=== PATIENT | female | born 1935 | race Caucasian/White ===

== ENCOUNTER 2017-10-30 16:43 | Inpatient (IN) ==
--- NOTE | 2017-10-30 17:50 | Emergency Department Note ---
START Narrative - START START: 82-year-old female who has a history of recurrent diverticulitis who developed increasing lower abdominal pain. Patient's been seen 3 times at an outside facility. On antibiotics is getting worse. Skull examination tenderness across the abdomen diffusely without guarding or rebound.
[2017-10-30 18:35] LABS: Basophils % 0.2 %; Eosinophils % 0.1 %; Hematocrit 39.1 % (35.3-44.9); Immature Granulocytes % 0.5 % (0-4); Lymphocytes # 1.3 K/mcL (0.6-4.6); Lymphocytes % 7.7 %; Mean Corpuscular HGB Conc 33.2 g/dL (31.6-35.5); Mean Corpuscular Hemoglobin 29.1 pg (28.0-33.3); Mean Corpuscular Volume 87.7 fL (83.0-100.0); Mean Platelet Volume 10.7 fL (9.4-12.4); Monocytes # 1.3 K/mcL (0.0-1.3); Monocytes % 7.4 %; Neutrophils # 14.5 K/mcL (1.6-8.9); Platelet Count 263 K/mcL (140-400); Red Blood Count 4.46 M/mcL (3.82-4.97); Segmented Neutrophils % 84.1 %
[2017-10-30 18:59] LABS: Alanine Aminotransferase 21 Units/L (7-52); Albumin 3.7 g/dL (3.5-5.7); Albumin/Globulin Ratio 1.1 (1.1-2.2); Alkaline Phosphatase 76 Units/L (34-104); Amylase 16 Units/L (29-103); Aspartate Amino Transferase 19 Units/L (13-39); BUN/Creatinine Ratio 12 (6-26); Bilirubin,Direct 0.2 mg/dL (0.0-0.2); Bilirubin,Indirect 0.4 mg/dL (0.0-1.2); Bilirubin,Total 0.6 mg/dL (0.3-1.0); Blood Urea Nitrogen 9 mg/dL (8-23); Carbon Dioxide 25 mEq/L (23-29); Chloride 97 mEq/L (98-107); Globulin 3.4 g/dL (2.4-3.5); Glucose 130 mg/dL (70-105); Lipase 9 Units/L (11-82); Osmolality,Calculated 278 (280-300); Potassium 2.9 mEq/L (3.5-5.1); Sodium 134 mEq/L (136-145); Total Protein 7.1 g/dL (6.4-8.9); eGFR For African Americans > 60 (> 60); eGFR For Non-African Americans > 60 (> 60)
[2017-10-30] MEDS ORDERED: 0.9 % Sodium Chloride 1,000 ML IVC ONE ×2 (21:03→21:36)
[2017-10-30] MEDS ORDERED: Ondansetron 4 MG/2 ML VIAL IVP ONE (21:19)
--- NOTE | 2017-10-30 21:25 | Emergency Department Note ---
Disposition Clinical Impression: Colitis Abdominal pain Qualifiers: Abdominal location: left lower quadrant Qualified Code(s): R10.32 - Left lower quadrant pain Disposition: Admitted As Inpatient Condition: Good Referrals: Randy Amor DO [Primary Care Provider] - Forms: ED Satisfaction Letter, Work/School Release Time of Disposition: 22:48 Abdominal Pain HPI - General Chief Complaint: ED Abdominal Pain Stated Complaint: Diverticulitis Time Seen by Provider: 10/30/17 17:48 Source: patient Nursing Notes Reviewed: Yes Vital Signs Reviewed: Yes - History of Present Illness Pt Subjective Complaint: abdominal pain Onset (ago): week(s) Consistency: Worsening Location: LLQ Pain Scale: 8 Quality: cramping, other ("comes and goes") Radiation: LUQ Migration to: no migration Improves with: nothing Worsens with: movement Context: other (diarrhea for "weeks") Associated symptoms: Reports: nausea, diarrhea, fever, syncope, other (weakness) . Denies: vomiting, constipation, dysuria, melena Treatments prior to arrival: other ([facility] ED last week had CT, PCP office yesterday) - Related Data Home Medications Medication Instructions Recorded Confirmed Lisinopril mg PO DAILY 10/30/17 Omeprazole Magnesium [Prilosec Otc] 20 mg PO DAILY 10/30/17 10/30/17 Potassium Chloride [Klor-Con 10] 10 meq PO DAILY 10/30/17 10/30/17 hydroCHLOROthiazide 25 mg PO DAILY 10/30/17 10/30/17 [Hydrochlorothiazide] Allergies Allergy/AdvReac Type Severity Reaction Status Date / Time Procaine [From Novocain] Allergy Palpitation Verified 10/30/17 17:51 s Vsaffip-Fti-Kzm Reductase Allergy See Verified 10/30/17 17:51 Inhibitor Comments [Statins] All systems ED: reviewed and negative except as stated. Review of Systems: As Per HPI Constitutional: Reports: as per HPI Eyes: Denies: eye pain ENT ED: Denies: ear pain Cardiovascular: Denies: chest pain, palpitations, dyspnea on exertion Respiratory: Denies: cough, dyspnea Gastrointestinal: Reports: as per HPI. Denies: hematemesis, melena, hematochezia Genitourinary: Denies: dysuria Musculoskeletal: Denies: back pain Integumentary: Denies: rash Neurological: Denies: headache Psychiatric: Denies: anxiety Endocrine: Denies: fatigue Hematological/Lymphatic: Denies: easy bleeding Allergic/Immunologic: Denies: facial swelling Abdominal Pain PMH - Past Medical History Medical history: Reports: non-contributory Female Surgical History: Reports: cholecystectomy Psychiatric history: Reports: no psych history - Social History Smoking status: Never smoker Alcohol use: Reports: none Drug use: Reports: none Physical Exam - General Limitations: no limitations General appearance: alert, in no apparent distress - Head Head exam: normocephalic - Eye Eye exam: Present: EOMI. Absent: conjunctival injection - ENT ENT exam: normal oropharynx, mucous membranes moist - Neck Neck exam: Present: full ROM - Chest Chest inspection: Present: symmetric chest wall rise - Respiratory Respiratory exam: Present: normal lung sounds bilaterally. Absent: respiratory distress - Cardiovascular Cardiovascular exam: Present: normal rhythm, tachycardia - Abdominal Exam Abdominal exam: Present: soft, tenderness. Absent: distention, guarding, rebound Abdominal tenderness: Present: LLQ - Extremities Exam Extremities exam: Present: normal inspection, full ROM, normal capillary refill - Back Exam Back exam: Present: full ROM. Absent: tenderness, CVA tenderness (R), CVA tenderness (L) - Neurological Exam Neurological exam: Present: alert, oriented X3 - Psychiatric Psychiatric exam: Present: normal affect, normal mood - Skin Skin exam: Present: warm, dry, intact, normal color. Absent: rash, cyanosis, diaphoresis Course Course Narrative: 82-year-old female arrives via private vehicle with complaint of left lower quadrant pain which she describes has been occurring since last week. Pt had CT last week and was told diverticulitis. She is accompanied her brother and grandson She states her pain has been accompanied with diarrhea which has been lasting for weeks. She scratched her abdominal pain is now radiating up to her left upper quadrant, she describes is waxing and waning. Her family mentions that she has also become more weak and fatigued, feverish, and had an episode of syncope or possibly presyncope. (Pt describes she was standing and felt weak falling onto a chair, but denies any prolonged downtime,injury from the fall, or prolong unconsciousness). Patient was seen at [facility] last week and was told that she had diverticulitis, however patient states she was not given any antibiotics. She was seen at her primary care provider's office yesterday as well. She mentions they took stool samples or cultures. Patient states that she is nauseous and makes it difficult for her to eat, but has been trying to take in more fluids. She denies chest pain, hematemesis, melena, bloody stools, urinary symptoms, and contusion. Patient was triaged, and while patient was waiting for a room in this department , initial orders were written after triage by Dr. Jordan. Please see his documentation for further details. Pt now in fast track area. Pt seen and examined. well-developed elderly female in no acute distress. She is alert and oriented. There is no cyanosis or diaphoresis. Lungs clear to ascultation bilaterally. Patient tachycardic but regular rhythm. Abdomen soft , tender left lower quadrant. No gross focal neurological deficits. CT read by radiologist, concerning for colitis more so than diverticulitis. Laboratory shows elevated white count, and patient is tachycardic. We will order EKG, CXR, fluids, blood cultures and lactic, Abx. Pt will need likely admission. - Reevaluation(s) Reevaluation #1: Pt discussed with Dr. Roman who had face time with patient and agreed for admission. Pt receiving fluids/abx. One dose of potassium and zofran. Pt resting comfortably in exam room. Has declined pain meds. plan will be for admission to hospitalists. Time: 22:48 Reevaluation #2: Pt discussed with and accepted by Dr. Lozano who also advised IV flagyl and potassium rider. Time: 23:51 Vital Signs Temperature 99.5 F 10/30/17 17:44 Pulse Rate 129 10/30/17 17:44 Respiratory Rate 16 10/30/17 17:44 Blood Pressure 157/70 10/30/17 17:44 O2 Sat by Pulse Oximetry 96 10/30/17 17:44 Temperature 99.5 F 10/30/17 17:44 Pulse Rate 129 10/30/17 17:44 Respiratory Rate 16 10/30/17 17:44 Blood Pressure 157/70 10/30/17 17:44 O2 Sat by Pulse Oximetry 96 10/30/17 17:44 Oxygen Delivery Oxygen Delivery Room Air Abdominal Pain - Lab Data Lab results reviewed: Yes I reviewed the patient's lab results. Result diagrams: 10/30/17 18:12 10/30/17 18:12 Lab Results 10/30/17 10/30/17 10/30/17 Range/Units 18:12 18:12 21:22 WBC 17.3 H (4.3-11.1) K/mcL RBC 4.46 (3.82-4.97) M/mcL Hgb 13.0 (11.5-15.4) g/dL Hct 39.1 (35.3-44.9) % MCV 87.7 (83.0-100.0) fL MCH 29.1 (28.0-33.3) pg MCHC 33.2 (31.6-35.5) g/dL RDW 13.0 (11.5-14.5) % Plt Count 263 (140-400) K/mcL MPV 10.7 (9.4-12.4) fL Immature Gran % 0.5 (0-4) % Seg Neutrophils % 84.1 % Lymphocytes % 7.7 % Monocytes % 7.4 % Eosinophils % 0.1 % Basophils % 0.2 % Neutrophils # 14.5 H (1.6-8.9) K/mcL Lymphocytes # 1.3 (0.6-4.6) K/mcL Monocytes # 1.3 (0.0-1.3) K/mcL Eosinophils # 0.0 (0.0-0.6) K/mcL Basophils # 0.0 (0.0-0.2) K/mcL Immature Plt Fraction 4.0 (1.1-6.1) % Sodium 134 L (136-145) mEq/L Potassium 2.9 L (3.5-5.1) mEq/L Chloride 97 L (98-107) mEq/L Carbon Dioxide 25 (23-29) mEq/L BUN 9 (8-23) mg/dL Creatinine 0.75 (0.60-1.20) mg/dL Est GFR ( Amer) > 60 (> 60) Est GFR (Non-Af Amer) > 60 (> 60) BUN/Creatinine Ratio 12 (6-26) Glucose 130 H (70-105) mg/dL Calculated Osmolality 278 L (280-300) Lactic Acid 0.8 (0.5-2.2) mmol/L Calcium 9.0 (8.6-10.3) mg/dL Total Bilirubin 0.6 (0.3-1.0) mg/dL Direct Bilirubin 0.2 (0.0-0.2) mg/dL Indirect Bilirubin 0.4 (0.0-1.2) mg/dL AST 19 (13-39) Units/L ALT 21 (7-52) Units/L Alkaline Phosphatase 76 (34-104) Units/L Serum Total Protein 7.1 (6.4-8.9) g/dL Albumin 3.7 (3.5-5.7) g/dL Globulin 3.4 (2.4-3.5) g/dL Albumin/Globulin Ratio 1.1 (1.1-2.2) Amylase 16 L (29-103) Units/L Lipase 9 L (11-82) Units/L Urine Color (Yellow) Urine Clarity (Clear) Urine pH (5.0-8.0) pH Units Ur Specific [place] (1.010-1.025) Urine Protein (Neg-Trace) mg/dL Urine Glucose (UA) (Normal) mg/dL Urine Ketones (Negative) mg/dL Urine Blood (Negative) Urine Nitrite (Negative) Urine Bilirubin (Negative) Urine Urobilinogen (Normal) mg/dL Ur Leukocyte Esterase (Negative) Urine Microscopic RBC (0-3) per hpf Urine Microscopic WBC (0-3) per hpf Ur Squamous Epith Cells (None-Few) per lpf Urine Bacteria (None-Few) per hpf Hyaline Casts (None-Few) per lpf Urine Mucus (Few) Ur Culture Indicated? (NO) 10/30/17 Range/Units 22:30 WBC (4.3-11.1) K/mcL RBC (3.82-4.97) M/mcL Hgb (11.5-15.4) g/dL Hct (35.3-44.9) % MCV (83.0-100.0) fL MCH (28.0-33.3) pg MCHC (31.6-35.5) g/dL RDW (11.5-14.5) % Plt Count (140-400) K/mcL MPV (9.4-12.4) fL Immature Gran % (0-4) % Seg Neutrophils % % Lymphocytes % % Monocytes % % Eosinophils % % Basophils % % Neutrophils # (1.6-8.9) K/mcL Lymphocytes # (0.6-4.6) K/mcL Monocytes # (0.0-1.3) K/mcL Eosinophils # (0.0-0.6) K/mcL Basophils # (0.0-0.2) K/mcL Immature Plt Fraction (1.1-6.1) % Sodium (136-145) mEq/L Potassium (3.5-5.1) mEq/L Chloride (98-107) mEq/L Carbon Dioxide (23-29) mEq/L BUN (8-23) mg/dL Creatinine (0.60-1.20) mg/dL Est GFR ( Amer) (> 60) Est GFR (Non-Af Amer) (> 60) BUN/Creatinine Ratio (6-26) Glucose (70-105) mg/dL Calculated Osmolality (280-300) Lactic Acid (0.5-2.2) mmol/L Calcium (8.6-10.3) mg/dL Total Bilirubin (0.3-1.0) mg/dL Direct Bilirubin (0.0-0.2) mg/dL Indirect Bilirubin (0.0-1.2) mg/dL AST (13-39) Units/L ALT (7-52) Units/L Alkaline Phosphatase (34-104) Units/L Serum Total Protein (6.4-8.9) g/dL Albumin (3.5-5.7) g/dL Globulin (2.4-3.5) g/dL Albumin/Globulin Ratio (1.1-2.2) Amylase (29-103) Units/L Lipase (11-82) Units/L Urine Color Dark Yellow (Yellow) Urine Clarity Cloudy A (Clear) Urine pH 6.5 (5.0-8.0) pH Units Ur Specific [place] 1.011 (1.010-1.025) Urine Protein 100 H (Neg-Trace) mg/dL Urine Glucose (UA) Normal (Normal) mg/dL Urine Ketones 15 H (Negative) mg/dL Urine Blood Negative (Negative) Urine Nitrite Negative (Negative) Urine Bilirubin Small H (Negative) Urine Urobilinogen Normal (Normal) mg/dL Ur Leukocyte Esterase Negative (Negative) Urine Microscopic RBC 3-5 H (0-3) per hpf Urine Microscopic WBC 3-5 H (0-3) per hpf Ur Squamous Epith Cells Many H (None-Few) per lpf Urine Bacteria Moderate H (None-Few) per hpf Hyaline Casts Moderate H (None-Few) per lpf Urine Mucus Many H (Few) Ur Culture Indicated? NO (NO) - Radiology Data Radiology results reviewed: Yes I reviewed the patient's radiology results. - EKG Data EKG attestation: Yes I reviewed and interpreted this EKG. EKG results narrative: minimal ST depression EKG shows normal: sinus rhythm Rate: tachycardia [place]/QRS: normal Interpretation: no acute changes Attestation Statement - Attestation Attestation: Dr Roman note: Pt seen in conjunction w/ PA Ronald De Jesus; Please see his charting for complete documentation; I spent face to face time w/ pt and agree w/ pts treament and disposition and spent face to face time w/ pt; ct ray results reviewed; will require admission due to her dehydration and heart rate; non toxic at this time w/ minimal pain
[2017-10-30] MEDS ORDERED: Piperacillin/Tazobactam 3.375 GM in Water for inj. (sterile) 20 ML IVP ONE (21:36)
[2017-10-30 22:57] LABS: Bilirubin,Urine Small (Negative); Blood,Urine Negative (Negative); Clarity,Urine Cloudy (Clear); Color,Urine Dark Yellow (Yellow); Glucose,Urine (UA) Normal (Normal); Ketones,Urine 15 mg/dL (Negative); Leukocyte Esterase,Urine Negative (Negative); Nitrite,Urine Negative (Negative); PH,Urine 6.5 pH Units (5.0-8.0); Protein,Urine 100 mg/dL (Neg-Trace); Specific Gravity,Urine 1.011 (1.010-1.025); Urobilinogen,Urine Normal (Normal)
[2017-10-30 23:00] LABS: Hyaline Casts,Urine Moderate per lpf (None-Few); Squamous Epithelial Cell,Urine Many per lpf (None-Few)
[2017-10-30 23:16] LABS: Bacteria,Urine Moderate per hpf (None-Few); Mucus,Urine Many (Few)
[2017-10-30] MEDS ORDERED: MetroNIDAZOLE 500 MG/100 ML 500 MG/100 ML BAG IVPB ONE (23:48)
--- NOTE | 2017-10-31 01:09 | Internal Med History&Physical ---
<Ismael Posada - Last Filed: 10/31/17 01:50> Date of Encounter: 10/31/17 Time of Encounter: 01:03 Assessment and Plan (1) Colitis Current visit: Yes Status: Acute Patient appears comfortable and in no acute distress. Patient is afebrile. EKG shows sinus rhythm with no acute ischemic changes. UA is negative for infection. Per radiology report, CT of abdomen and pelvis shows findings more suggestive of infectious colitis than diverticulitis in the ascending colon and sigmoid colon. Chest x-ray showed no acute cardiopulmonary processes. Lactic acid is 0.8. Labs showed elevated white blood count at 17.3. 1. Will give patient IV antibitoics including Flagyl and Cipro. 2. Continue to monitor the patient closely. (2) Hypokalemia Current visit: Yes Status: Acute Patient is comfortable and appears in no acute distress. Patients afebrile. EKG shows sinus rhythm with no acute ischemic changes. Labs show potassium at 2.9 and white blood count at 17.3. Chest x-ray showed no acute cardiopulmonary processes. Will administer potassium to patient and continue to replete as needed. (3) Hypertension Current visit: Yes Status: Acute Will continue home medications. Continue to monitor the patient closely. Qualifiers: Qualified Code(s): I10 - Essential (primary) hypertension Internal Medicine - H&P: HPI Chief complaint: Abdominal pain Admitted From: Emergency Dept History of present illness: Ms. Johnson is a 82 year old female presents to the ED today complaining of left lower quadrant abdominal pain that has been present for about two weeks and is worsening. The patient states that one week ago she was seen at [facility] ER for diverticulitis, but she was not place on any antibiotics. She states today her LLQ abdominal pain is worse and it feels worse than her previous diverticulitis. She describes the left lower quadrant pain as a constant and sharp pain that radiates to the left upper quadrant. She states that the pain is worse with palpation and movement. She did not notice anything that improves the pain. She admits nausea, loss of appetite, low grade fever, fatigue, weakness, and bloody and mucous diarrhea for the past 4 weeks. She denies any headache, vision changes, chest pain, shortness of breath, difficulty breathing, constipation, difficulty urinating, dysuria, vaginal discharge, any blood in her urine, and any numbness or tingling. Past Med Surg Social Fam HX - Past Medical History Medical history: non-contributory Psychiatric history: no psych history - Social History Smoking Status: Never smoker Smokeless Tobacco Status: No Alcohol use: none Drug use: none - Family History Father Hx Family Endocrine Disorder: Yes (DM) Internal Medicine - H&P: Meds Lisinopril mg PO DAILY 10/30/17 [History] Omeprazole Magnesium [Prilosec Otc] 20 mg PO DAILY 10/30/17 [History] Potassium Chloride [Klor-Con 10] 10 meq PO DAILY 10/30/17 [History] hydroCHLOROthiazide [Hydrochlorothiazide] 25 mg PO DAILY 10/30/17 [History] 3 Allergy/AdvReac Type Severity Reaction Status Date / Time Procaine [From Novocain] Allergy Palpitation Verified 10/30/17 17:51 s Ybxnqxh-Qcm-Eox Reductase Allergy See Verified 10/30/17 17:51 Inhibitor Comments [Statins] All Systems PM: A 10-system review of systems was performed and is negative for pertinent findings except as documented above in the HPI. - Constitutional Vitals: Temp Pulse Resp BP Pulse Ox 99.5 F 108 16 159/75 97 10/30/17 17:44 10/30/17 23:56 10/30/17 23:56 10/30/17 23:56 10/30/17 23:56 General appearance: Present: A&O X 3, pleasant. Absent: no acute distress - Head Head exam: Present: atraumatic, normocephalic - Eye Eye exam: Present: PERRL, conjuntiva pink, sclera anicteric Pupils: Present: PERRL - Neck Neck exam general surgery: Present: supple, trachea midline. Absent: lymphadenopathy - Respiratory Respiratory exam: Present: CTAB. Absent: accessory muscle use, rales, respiratory distress, rhonchi, wheezes - Cardiovascular Cardiovascular exam: Present: RRR, +S1, +S2. Absent: diastolic murmur, gallop, rubs, systolic murmur - GI/Abdominal GI/Abdominal exam: Present: normal bowel sounds, soft, tenderness (tenderness to palpation in the LLQ and LUQ. ), no peritoneal signs. Absent: distended, mass - Expanded GI/Abdominal Exam GI/Abdominal exam expanded: Absent: ascites, Wang's sign, tenderness at McBurney's Point - Extremities Exam Extremities exam: Present: warm, radial pulses palpable and symmetrical. Absent : calf tenderness, cyanotic, pedal edema - Neurological Exam Neurological exam: Present: alert, CN II-XII intact, oriented X3, no focal deficits, strengths equal and symetr throughout. Absent: motor sensory deficit , pronater drift, facial droop, speech deficit - Skin Skin exam: Present: dry, intact. Absent: cyanosis, diaphoretic, petechiae, rash Internal Med - H&P Results - Labs CBC & Chem 7: 10/30/17 18:12 10/30/17 18:12 <Leydi Lozano - Last Filed: 10/31/17 04:44> Date of Encounter: 10/31/17 Time of Encounter: 02:35 Internal Medicine - H&P: HPI History of present illness: Ms. Johnson is a 82 year old female All Systems PM: A 10-system review of systems was performed and is negative for pertinent findings except as documented above in the HPI. - Constitutional Vitals: Temp Pulse Resp BP Pulse Ox 99.5 F 108 16 159/75 97 10/30/17 17:44 10/30/17 23:56 10/30/17 23:56 10/30/17 23:56 10/30/17 23:56 Internal Med - H&P Results - Labs CBC & Chem 7: 10/31/17 03:48 10/31/17 03:48 Labs: Short CBC 10/31/17 Range/Units 03:48 WBC 12.5 H (4.3-11.1) K/mcL Hgb 11.6 (11.5-15.4) g/dL Hct 35.6 (35.3-44.9) % Plt Count 179 (140-400) K/mcL BMP 10/31/17 03:48 Sodium 139 Potassium 3.1 L Chloride 108 H Carbon Dioxide 23 BUN 8 Creatinine 0.78 Glucose 113 H Calcium 7.9 L - Attending Attestation Patient is an 82y/o female admitted for abd pain secondary to colitis. Noted to be hypokalemic and hypertensive Pt independently seen and examined at bedside Will continue IV abx, NPO at this time, advance diet as clinically improves IV fluids K supplementation Restart home dose of Lisinopril after verification BP control Heparin SQ for DVT ppx Case discussed with resident physician, Dr. Posada, I agree with her documented findings, assessment,and plan except as listed above.
[2017-10-31] MEDS ORDERED: Ondansetron ODT 4 MG TAB.RAPDIS SL PRN (01:24)
[2017-10-31] MEDS ORDERED: Naloxone 0.4 MG/ML INJ IVP PRN (01:24)
[2017-10-31] MEDS ORDERED: Acetaminophen 325 MG TABLET PO PRN (01:24)
[2017-10-31] MEDS ORDERED: *HR* Metoprolol 5 MG/5 ML VIAL IVP PRN (02:41)
[2017-10-31 04:12] LABS: Basophils % 0.3 %; Eosinophils # 0.1 K/mcL (0.0-0.6); Eosinophils % 0.4 %; Hematocrit 35.6 % (35.3-44.9); Hemoglobin 11.6 g/dL (11.5-15.4); Immature Granulocytes % 0.4 % (0-4); Lymphocytes # 0.8 K/mcL (0.6-4.6); Lymphocytes % 6.5 %; Mean Corpuscular HGB Conc 32.6 g/dL (31.6-35.5); Mean Corpuscular Hemoglobin 29.5 pg (28.0-33.3); Mean Corpuscular Volume 90.6 fL (83.0-100.0); Mean Platelet Volume 10.7 fL (9.4-12.4); Monocytes # 0.8 K/mcL (0.0-1.3); Monocytes % 6.6 %; Neutrophils # 10.7 K/mcL (1.6-8.9); Platelet Count 179 K/mcL (140-400); Red Blood Count 3.93 M/mcL (3.82-4.97); Red Cell Distribution Width 13.2 % (11.5-14.5); Segmented Neutrophils % 85.8 %
[2017-10-31 04:27] LABS: BUN/Creatinine Ratio 10 (6-26); Blood Urea Nitrogen 8 mg/dL (8-23); Calcium 7.9 mg/dL (8.6-10.3); Carbon Dioxide 23 mEq/L (23-29); Chloride 108 mEq/L (98-107); Chol/HDL Ratio 3.2 (0-4.9); Cholesterol 121 mg/dL (< 200); Glucose 113 mg/dL (70-105); HDL Cholesterol 38 mg/dL (40-59); LDL Cholesterol,Calculated 67 mg/dL (0-99); Magnesium 1.8 mg/dL (1.6-2.6); Osmolality,Calculated 287 (280-300); Phosphorous 2.3 mg/dL (2.7-4.5); Potassium 3.1 mEq/L (3.5-5.1); Sodium 139 mEq/L (136-145); Triglycerides 78 mg/dL (< 150); eGFR For African Americans > 60 (> 60); eGFR For Non-African Americans > 60 (> 60)
[2017-10-31] MEDS: *HR* Heparin 5,000 UNIT/ML VIAL SQ SCH ×2 (05:18→17:50)
[2017-10-31] MEDS: 0.9 % Sodium Chloride 1,000 ML IVC SCH ×2 (05:21→19:38)
[2017-10-31 05:22] LABS: Platelet Estimate Normal (Normal)
[2017-10-31] MEDS ORDERED: MetroNIDAZOLE 250 MG/50 ML 250 MG/50 ML BAG IVPB SCH (08:00)
[2017-10-31] MEDS ORDERED: MetroNIDAZOLE 500 MG/100 ML 500 MG/100 ML BAG IVPB SCH (08:00)
[2017-10-31] MEDS: hydroCHLOROthiazide 25 MG TABLET PO SCH (10:25)
[2017-10-31 11:35] LABS: Adenovirus F 40/41 PCR Not detected (Not detect); Astrovirus PCR Not detected (Not detect); C.difficile Toxin A/B by PCR See reflex test (Not detect); Campylobacter by PCR Not detected (Not detect); Cryptosporidium by PCR Not detected (Not detect); Cyclospora cayetanensis PCR Not detected (Not detect); E. coli O157 by PCR Not detected (Not detect); Entamoeba histolytica PCR Not detected (Not detect); Enteroaggregative E.coli(EAEC) Not detected (Not detect); Enteropathogenic E.coli(EPEC) Not detected (Not detect); Enterotoxigenic E.coli (ETEC) Not detected (Not detect); Giardia lamblia PCR Not detected (Not detect); Norovirus GI/GII PCR Not detected (Not detect); Plesiomonas shigelloides PCR Not detected (Not detect); Rotavirus A PCR Not detected (Not detect); Salmonella PCR Not detected (Not detect); Sapovirus PCR Not detected (Not detect); Shig/EnteroinvasiveE coli EIEC Not detected (Not detect); Shigalike tox-prod E coli STEC Not detected (Not detect); Vibrio PCR Not detected (Not detect); Vibrio cholerae PCR Not detected (Not detect); Yersinia enterocolitica PCR Not detected (Not detect)
--- NOTE | 2017-10-31 12:16 | Electrocardiograph Report ---
[place] [id number] Test Date: 2017-10-30 Pat Name: Jessi Johnson Department: 104 Room: 3A Gender: F Supervisor Publications: HUMPHREY : 1935 Requested By: Paco Wade Order Number: [id number] Reading MD: Warren Tolliver DO Measurements Intervals [place] Rate: 100 P: 45 AL: 168 QRS: 9 QRSD: 70 T: 34 QT: 327 QTc: 384 Interpretive Statements SINUS TACHYCARDIA Electronically Signed On 10-31-2017 12:15:18 EST by Warren Tolliver DO
--- NOTE | 2017-10-31 15:33 | Event Note ---
Date of Encounter: 10/31/17 Time of Encounter: 13:00 Patient seen in ER. Currently not having any new episodes of nausea or vomiting. Does continue to have diarrhea. Stool for C. difficile was positive. Will place patient on oral vancomycin. Stop ciprofloxacin.
[2017-10-31] MEDS: 0.9 % Sodium Chloride w KCl 20 MEQ/1,000 ML MLS IVC SCH (17:50)
[2017-10-31] MEDS: Vancomycin Oral Soln 250 MG/5 ML UDC PO SCH ×2 (18:44→22:19)
[2017-11-01] MEDS: *HR* Heparin 5,000 UNIT/ML VIAL SQ SCH ×2 (05:39→19:42)
[2017-11-01] MEDS ORDERED: *HR* Dextrose 50 % in Water (Syg) 50 ML SYRINGE ONE (08:30)
[2017-11-01] MEDS: 0.9 % Sodium Chloride w KCl 20 MEQ/1,000 ML MLS IVC SCH ×2 (08:42→23:00)
[2017-11-01] MEDS: hydroCHLOROthiazide 25 MG TABLET PO SCH (08:44)
[2017-11-01] MEDS: Vancomycin Oral Soln 250 MG/5 ML UDC PO SCH ×4 (08:45→21:51)
--- NOTE | 2017-11-01 15:34 | Internal Med Progress Note ---
Date of Encounter: 11/01/17 Time of Encounter: 08:25 - Assessment and plan (1) Clostridium difficile colitis Current Visit: Yes Status: Acute Assessment and plan: Patient with acute C. difficile colitis. Start on oral vancomycin with improvement in her symptoms. Will continue. Started on diet today. Moderate risk for complications. (2) Hypokalemia Current Visit: Yes Status: Acute Assessment and plan: Repleting intravenously. (3) Hypertension Current Visit: Yes Status: Chronic Assessment and plan: Blood pressure is elevated this morning. Continue Lopressor and hydrochlorothiazide. We will monitor blood pressure and adjust antihypertensive regimen accordingly. Qualifiers: Hypertension type: essential hypertension Qualified Code(s): I10 - Essential (primary) hypertension (4) Hypoglycemia Current Visit: Yes Status: Acute Assessment and plan: Patient had mild hyperglycemia earlier this morning. Likely due to nothing by mouth status. Patient has now been placed on diet and her blood sugars are improved. - Subjective Interval history: Patient is feeling better today. She had 3 episodes of diarrhea overnight. This is much improved than the 10 episodes of diarrhea she was having prior to coming in. She denies any fever or chills. No nausea or vomiting. Had blood sugars were low this morning at 58. She did not receive any insulin products. She denies any diaphoresis or palpitations. - Constitutional Vitals: Temp Pulse Resp BP Pulse Ox 98.6 F 84 15 144/73 97 11/01/17 14:56 11/01/17 14:56 11/01/17 14:56 11/01/17 14:56 11/01/17 14:56 General appearance: Present: cooperative, A&O X 3, pleasant, no acute distress, answers questions appropriately - Respiratory Respiratory exam: Present: CTAB. Absent: accessory muscle use, rales, rhonchi, wheezes - Cardiovascular Cardiovascular exam: Present: RRR, +S1, +S2. Absent: diastolic murmur, gallop, rubs, systolic murmur - GI/Abdominal GI/Abdominal exam: Present: normal bowel sounds, soft, no peritoneal signs. Absent: distended, tenderness - Extremities Exam Extremities exam: Present: warm, radial pulses palpable and symmetrical. Absent : calf tenderness, cyanotic, pedal edema - Neurological Exam Neurological exam: Present: alert, oriented X3, no focal deficits. Absent: facial droop, speech deficit Internal Medicine: Result - Labs CBC & Chem 7: 10/31/17 03:48 10/31/17 03:48 Consult Discharge Plan - Plan Referrals: Randy Amor DO [Primary Care Provider] -
--- NOTE | 2017-11-01 17:55 | Event Note ---
Date of Encounter: 11/01/17 Time of Encounter: 17:54 Patient developed rapid A. fib. Denies prior history but has previously had episodes of palpitations that resolved spontaneously in the past. Was given 5 mg of Lopressor with slight improvement in heart rate. Has now been placed on intravenous Cardizem drip. Monitor with telemetry. Will get 2-D echocardiogram
[2017-11-01 19:06] LABS: Calcium 8.1 mg/dL (8.6-10.3); Carbon Dioxide 26 mEq/L (23-29); Chloride 103 mEq/L (98-107); Magnesium 1.8 mg/dL (1.6-2.6); Potassium 2.9 mEq/L (3.5-5.1); Sodium 136 mEq/L (136-145)
[2017-11-01 19:12] LABS: BUN/Creatinine Ratio 16 (6-26); Blood Urea Nitrogen 11 mg/dL (8-23); Glucose 117 mg/dL (70-105); Osmolality,Calculated 282 (280-300); Phosphorous 1.5 mg/dL (2.7-4.5); eGFR For African Americans > 60 (> 60); eGFR For Non-African Americans > 60 (> 60)
[2017-11-02 05:28] LABS: Basophils # 0.1 K/mcL (0.0-0.2); Basophils % 0.8 %; Eosinophils # 0.7 K/mcL (0.0-0.6); Eosinophils % 8.7 %; Hemoglobin 10.9 g/dL (11.5-15.4); Immature Granulocytes % 1.1 % (0-4); Lymphocytes # 2.2 K/mcL (0.6-4.6); Lymphocytes % 26.1 %; Mean Corpuscular HGB Conc 32.1 g/dL (31.6-35.5); Mean Corpuscular Hemoglobin 28.6 pg (28.0-33.3); Mean Corpuscular Volume 89.2 fL (83.0-100.0); Mean Platelet Volume 10.2 fL (9.4-12.4); Monocytes # 0.7 K/mcL (0.0-1.3); Monocytes % 7.9 %; Neutrophils # 4.7 K/mcL (1.6-8.9); Platelet Count 232 K/mcL (140-400); Red Blood Count 3.81 M/mcL (3.82-4.97); Red Cell Distribution Width 13.2 % (11.5-14.5); Segmented Neutrophils % 55.4 %
[2017-11-02 05:44] LABS: BUN/Creatinine Ratio 14 (6-26); Blood Urea Nitrogen 9 mg/dL (8-23); Carbon Dioxide 27 mEq/L (23-29); Chloride 109 mEq/L (98-107); Glucose 78 mg/dL (70-105); Osmolality,Calculated 290 (280-300); Potassium 2.9 mEq/L (3.5-5.1); Sodium 141 mEq/L (136-145); eGFR For African Americans > 60 (> 60); eGFR For Non-African Americans > 60 (> 60)
[2017-11-02 05:58] LABS: Platelet Estimate Normal (Normal)
[2017-11-02] MEDS: *HR* Heparin 5,000 UNIT/ML VIAL SQ SCH (06:05)
[2017-11-02] MEDS ORDERED: Potassium Chloride 40 MEQ, Lidocaine 1% 2 ML in D5% in Water 500 ML IVPB ONE (08:06)
[2017-11-02] MEDS: hydroCHLOROthiazide 25 MG TABLET PO SCH (09:08)
[2017-11-02] MEDS: Vancomycin Oral Soln 250 MG/5 ML UDC PO SCH ×4 (09:09→20:59)
--- NOTE | 2017-11-02 12:30 | Electrocardiograph Report ---
[place] [id number] Test Date: 2017-11-01 Pat Name: Jessi Johnson Department: 115 Room: 3A47 Gender: F Customer Service Clerk: CONNIE : 1935 Requested By: Santo Lyn Order Number: [id number] Reading MD: Chas Hernandez MD Measurements Intervals [place] Rate: 161 P: [place]: 0 QRS: 5 QRSD: 80 T: 0 QT: 185 QTc: 274 Interpretive Statements ATRIAL FIBRILLATION WITH RAPID VENTRICULAR RESPONSE Electronically Signed On 11-02-2017 12:28:29 EST by Chas Hernandez MD
--- NOTE | 2017-11-02 12:30 | Electrocardiograph Report ---
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
--- NOTE | 2017-11-02 16:26 | Internal Med Progress Note ---
Date of Encounter: 11/02/17 Time of Encounter: 09:50 - Assessment and plan (1) Clostridium difficile colitis Current Visit: Yes Status: Acute Assessment and plan: Continue oral vancomycin. Improving. (2) Hypokalemia Current Visit: Yes Status: Acute Assessment and plan: Improved with repletion (3) Hypertension Current Visit: Yes Status: Chronic Assessment and plan: well-controlled Qualifiers: Hypertension type: essential hypertension Qualified Code(s): I10 - Essential (primary) hypertension (4) Hypoglycemia Current Visit: Yes Status: Resolved Assessment and plan: Now resolved - Subjective Interval history: Patient feels much better today. No palpitations. No chest pain. Tolerating oral diet well. Has not had any new episodes of diarrhea overnight. - Constitutional Vitals: Temp Pulse Resp BP Pulse Ox 98.2 F 75 15 151/66 97 11/02/17 14:42 11/02/17 14:42 11/02/17 14:42 11/02/17 14:42 11/02/17 14:42 General appearance: Present: cooperative, A&O X 3, pleasant, no acute distress, answers questions appropriately - Respiratory Respiratory exam: Present: CTAB. Absent: accessory muscle use, rales, rhonchi, wheezes - Cardiovascular Cardiovascular exam: Present: RRR, +S1, +S2. Absent: diastolic murmur, gallop, rubs, systolic murmur - GI/Abdominal GI/Abdominal exam: Present: normal bowel sounds, soft, no peritoneal signs. Absent: distended, tenderness - Extremities Exam Extremities exam: Present: warm, radial pulses palpable and symmetrical. Absent : calf tenderness, cyanotic, pedal edema - Neurological Exam Neurological exam: Present: alert, oriented X3, no focal deficits. Absent: facial droop, speech deficit Internal Medicine: Result - Labs CBC & Chem 7: 11/03/17 05:56 11/03/17 05:56 Labs: Short CBC 11/02/17 Range/Units 05:08 WBC 8.5 (4.3-11.1) K/mcL Hgb 10.9 L (11.5-15.4) g/dL Hct 34.0 L (35.3-44.9) % Plt Count 232 (140-400) K/mcL Neutrophils # 4.7 (1.6-8.9) K/mcL BMP 11/01/17 11/02/17 17:44 05:08 Sodium 136 141 Potassium 2.9 L 2.9 L Chloride 103 109 H Carbon Dioxide 26 27 BUN 11 9 Creatinine 0.69 0.66 Glucose 117 H 78 Calcium 8.1 L 8.0 L Cardiac Enzymes 11/01/17 Range/Units 17:45 Troponin I < 0.03 (< 0.04) ng/mL - Impressions Impressions Echocardiogram 11/01/17 17:55 Impressions: LVEF 60-65%. Normal LV chamber size, wall thickness and function. Mild left ventricular diastolic dysfunction. Normal right ventricular structure and function. Mild tricuspid regurgitation. No pulmonary hypertension. Left Ventricular Wall Motion: Rest Echo Findings All wall segments showed normal motion. Findings: Study Quality * Technically adequate exam. ECG Findings * Normal sinus rhythm. Left Ventricle * LVEF 60-65%. * Normal LV chamber size, wall thickness and function. * Mild left ventricular diastolic dysfunction. Right Ventricle * Normal right ventricular structure and function. Left Atrium * Mildly dilated left atrium. Right Atrium * Normal right atrial size. Interatrial Septum * Interatrial septum not well evaluated. Aortic Valve * Trileaflet aortic valve. * Mildly sclerotic aortic valve leaflets. * No aortic regurgitation. * No aortic stenosis. Mitral Valve * Normal mitral valve structure and function. * No mitral regurgitation. * No mitral stenosis. Tricuspid Valve * Normal tricuspid valve structure. * Mild tricuspid regurgitation. * No pulmonary hypertension. Pulmonic Valve * Normal pulmonic valve structure and function. * No pulmonic regurgitation. Aorta * Normally sized aortic root. Pericardium * The pericardium appears normal. IVC * Normal IVC dimensions and inspiratory collapse. Pulmonary Artery * Normal visualized portions of the main pulmonary artery. Consult Discharge Plan - Plan Referrals: Randy Amor DO [Primary Care Provider] -
[2017-11-02] MEDS: Apixaban 5 MG TABLET PO SCH (20:57)
[2017-11-02] MEDS: 0.9 % Sodium Chloride w KCl 20 MEQ/1,000 ML MLS IVC SCH (21:03)
[2017-11-03 07:57] LABS: BUN/Creatinine Ratio 13 (6-26); Blood Urea Nitrogen 8 mg/dL (8-23); Calcium 8.4 mg/dL (8.6-10.3); Carbon Dioxide 28 mEq/L (23-29); Chloride 106 mEq/L (98-107); Glucose 77 mg/dL (70-105); Osmolality,Calculated 287 (280-300); Phosphorous 2.5 mg/dL (2.7-4.5); Potassium 3.8 mEq/L (3.5-5.1); Sodium 140 mEq/L (136-145); eGFR For African Americans > 60 (> 60); eGFR For Non-African Americans > 60 (> 60)
[2017-11-03 08:20] LABS: Basophils # 0.1 K/mcL (0.0-0.2); Basophils % 0.7 %; Eosinophils # 0.7 K/mcL (0.0-0.6); Hematocrit 35.1 % (35.3-44.9); Hemoglobin 11.3 g/dL (11.5-15.4); Immature Granulocytes % 2.5 % (0-4); Lymphocytes # 2.8 K/mcL (0.6-4.6); Lymphocytes % 35.3 %; Mean Corpuscular HGB Conc 32.2 g/dL (31.6-35.5); Mean Corpuscular Hemoglobin 28.7 pg (28.0-33.3); Mean Corpuscular Volume 89.1 fL (83.0-100.0); Mean Platelet Volume 10.7 fL (9.4-12.4); Monocytes # 0.6 K/mcL (0.0-1.3); Monocytes % 7.6 %; Neutrophils # 3.6 K/mcL (1.6-8.9); Platelet Count 289 K/mcL (140-400); Red Blood Count 3.94 M/mcL (3.82-4.97); Red Cell Distribution Width 13.2 % (11.5-14.5); Segmented Neutrophils % 44.9 %
[2017-11-03] MEDS: Apixaban 5 MG TABLET PO SCH ×2 (09:45→20:44)
[2017-11-03] MEDS: hydroCHLOROthiazide 25 MG TABLET PO SCH (09:45)
[2017-11-03] MEDS: 0.9 % Sodium Chloride w KCl 20 MEQ/1,000 ML MLS IVC SCH (12:06)
[2017-11-03] MEDS: Vancomycin Oral Soln 250 MG/5 ML UDC PO SCH ×4 (12:07→20:46)
[2017-11-03] MEDS: Lactobacillus 1 EACH CAP.SPRINK PO SCH ×2 (12:07→20:44)
--- NOTE | 2017-11-03 14:32 | Internal Med Progress Note ---
Date of Encounter: 11/03/17 Time of Encounter: 09:40 - Assessment and plan (1) Clostridium difficile colitis Current Visit: Yes Status: Acute Assessment and plan: Continue oral vancomycin. Patient having diarrhea episodes. We will start lactobacillus in addition to vancomycin. Moderate risk for complications. Start Gentle hydration. (2) Hypokalemia Current Visit: Yes Status: Resolved (3) Hypertension Current Visit: Yes Status: Chronic Assessment and plan: Well-controlled Qualifiers: Hypertension type: essential hypertension Qualified Code(s): I10 - Essential (primary) hypertension (4) Hypoglycemia Current Visit: Yes Status: Resolved - Subjective Interval history: Patient complains of new episodes of diarrhea. Began this morning. So far she says she has had 5 episodes. Tolerating oral diet. Feels weak overall. No abdominal pain. - Constitutional Vitals: Temp Pulse Resp BP Pulse Ox 97.9 F 70 16 134/53 96 11/03/17 06:02 11/03/17 06:02 11/03/17 06:02 11/03/17 06:02 11/03/17 06:02 General appearance: Present: cooperative, A&O X 3, pleasant, no acute distress, answers questions appropriately - Respiratory Respiratory exam: Present: CTAB. Absent: accessory muscle use, rales, rhonchi, wheezes - Cardiovascular Cardiovascular exam: Present: RRR, +S1, +S2. Absent: diastolic murmur, gallop, rubs, systolic murmur - GI/Abdominal GI/Abdominal exam: Present: normal bowel sounds, soft, no peritoneal signs. Absent: distended, tenderness - Extremities Exam Extremities exam: Present: warm, radial pulses palpable and symmetrical. Absent : calf tenderness, cyanotic, pedal edema - Neurological Exam Neurological exam: Present: CN II-XII intact, oriented X3, no focal deficits. Absent: facial droop, speech deficit Internal Medicine: Result - Labs CBC & Chem 7: 11/03/17 05:56 11/03/17 05:56 Labs: Short CBC 11/03/17 Range/Units 05:56 WBC 8.0 (4.3-11.1) K/mcL Hgb 11.3 L (11.5-15.4) g/dL Hct 35.1 L (35.3-44.9) % Plt Count 289 (140-400) K/mcL Neutrophils # 3.6 (1.6-8.9) K/mcL BMP 11/03/17 05:56 Sodium 140 Potassium 3.8 Chloride 106 Carbon Dioxide 28 BUN 8 Creatinine 0.64 Glucose 77 Calcium 8.4 L Consult Discharge Plan - Plan Referrals: Randy Amor DO [Primary Care Provider] -
[2017-11-04] MEDS: 0.9 % Sodium Chloride w KCl 20 MEQ/1,000 ML MLS IVC SCH ×2 (06:22→18:05)
[2017-11-04 10:10] LABS: BUN/Creatinine Ratio 12 (6-26); Blood Urea Nitrogen 9 mg/dL (8-23); Calcium 8.7 mg/dL (8.6-10.3); Carbon Dioxide 24 mEq/L (23-29); Chloride 107 mEq/L (98-107); Glucose 137 mg/dL (70-105); Osmolality,Calculated 289 (280-300); Potassium 4.1 mEq/L (3.5-5.1); Sodium 139 mEq/L (136-145); eGFR For African Americans > 60 (> 60); eGFR For Non-African Americans > 60 (> 60)
[2017-11-04] MEDS: hydroCHLOROthiazide 25 MG TABLET PO SCH (10:37)
[2017-11-04] MEDS: Lactobacillus 1 EACH CAP.SPRINK PO SCH ×2 (10:37→21:19)
[2017-11-04] MEDS: Apixaban 5 MG TABLET PO SCH ×2 (10:38→21:19)
[2017-11-04] MEDS: Vancomycin Oral Soln 250 MG/5 ML UDC PO SCH ×4 (10:38→21:21)
--- NOTE | 2017-11-04 15:21 | Internal Med Progress Note ---
Date of Encounter: 11/04/17 Time of Encounter: 09:50 - Assessment and plan (1) Clostridium difficile colitis Current Visit: Yes Status: Acute Assessment and plan: Continue oral vancomycin and lactobacillus. Continue to replenish electrolytes. Continue IV hydration. (2) Hypokalemia Current Visit: Yes Status: Resolved (3) Hypertension Current Visit: Yes Status: Chronic Assessment and plan: Remains elevated. Will start patient on low-dose amlodipine. Qualifiers: Hypertension type: essential hypertension Qualified Code(s): I10 - Essential (primary) hypertension (4) Hypoglycemia Current Visit: Yes Status: Resolved - Subjective Interval history: Patient has continued to have episodes of diarrhea. Also having mild abdominal discomfort in the left lower quadrant. No nausea or vomiting. No hematemesis or melena. No hematochezia. - Constitutional Vitals: Temp Pulse Resp BP Pulse Ox 97.7 F 82 16 145/67 94 11/04/17 07:20 11/04/17 07:20 11/04/17 07:20 11/04/17 07:20 11/04/17 07:20 General appearance: Present: cooperative, A&O X 3, pleasant, no acute distress, answers questions appropriately - Neck Neck exam general surgery: Present: supple, trachea midline. Absent: lymphadenopathy - Respiratory Respiratory exam: Present: CTAB. Absent: accessory muscle use, rales, rhonchi, wheezes - Cardiovascular Cardiovascular exam: Present: RRR, +S1, +S2. Absent: diastolic murmur, gallop, rubs, systolic murmur - GI/Abdominal GI/Abdominal exam: Present: normal bowel sounds, soft, no peritoneal signs. Absent: distended, tenderness - Extremities Exam Extremities exam: Present: warm, radial pulses palpable and symmetrical. Absent : calf tenderness, cyanotic, pedal edema Internal Medicine: Result - Labs CBC & Chem 7: 11/03/17 05:56 11/04/17 09:40 Labs: BMP 11/04/17 09:40 Sodium 139 Potassium 4.1 Chloride 107 Carbon Dioxide 24 BUN 9 Creatinine 0.74 Glucose 137 H Calcium 8.7 Consult Discharge Plan - Plan Referrals: Randy Amor DO [Primary Care Provider] -
[2017-11-04] MEDS: amLODIPine 5 MG TABLET PO SCH (18:06)
[2017-11-05] MEDS: 0.9 % Sodium Chloride w KCl 20 MEQ/1,000 ML MLS IVC SCH (04:20)
[2017-11-05 08:36] LABS: Basophils # 0.1 K/mcL (0.0-0.2); Basophils % 1.3 %; Eosinophils # 0.3 K/mcL (0.0-0.6); Eosinophils % 2.8 %; Hematocrit 40.5 % (35.3-44.9); Immature Granulocytes % 3.8 % (0-4); Lymphocytes # 2.8 K/mcL (0.6-4.6); Lymphocytes % 27.4 %; Mean Corpuscular HGB Conc 32.3 g/dL (31.6-35.5); Mean Corpuscular Volume 89.8 fL (83.0-100.0); Mean Platelet Volume 10.2 fL (9.4-12.4); Monocytes # 0.6 K/mcL (0.0-1.3); Monocytes % 5.5 %; Neutrophils # 6.2 K/mcL (1.6-8.9); Platelet Count 352 K/mcL (140-400); Red Blood Count 4.51 M/mcL (3.82-4.97); Red Cell Distribution Width 13.6 % (11.5-14.5); Segmented Neutrophils % 59.2 %
[2017-11-05 08:37] LABS: Hemoglobin 13.1 g/dL (11.5-15.4)
[2017-11-05 09:13] LABS: BUN/Creatinine Ratio 14 (6-26); Blood Urea Nitrogen 9 mg/dL (8-23); Calcium 8.6 mg/dL (8.6-10.3); Carbon Dioxide 25 mEq/L (23-29); Chloride 107 mEq/L (98-107); Glucose 100 mg/dL (70-105); Osmolality,Calculated 285 (280-300); Potassium 4.3 mEq/L (3.5-5.1); Sodium 138 mEq/L (136-145); eGFR For African Americans > 60 (> 60); eGFR For Non-African Americans > 60 (> 60)
[2017-11-05] MEDS: Apixaban 5 MG TABLET PO SCH ×2 (09:25→20:54)
[2017-11-05] MEDS: Lactobacillus 1 EACH CAP.SPRINK PO SCH ×2 (09:25→20:54)
[2017-11-05] MEDS: hydroCHLOROthiazide 25 MG TABLET PO SCH (09:25)
[2017-11-05] MEDS: amLODIPine 5 MG TABLET PO SCH (09:25)
[2017-11-05] MEDS: Vancomycin Oral Soln 250 MG/5 ML UDC PO SCH ×4 (09:26→20:54)
[2017-11-05] MEDS: Diltiazem CD (24hr) 120 MG CAPSULE PO SCH (09:26)
--- NOTE | 2017-11-05 15:10 | Discharge Summary ---
Date of Encounter: 11/05/17 Time of Encounter: 09:30 - Discharge Diagnosis (1) Clostridium difficile colitis Priority: Primary Status: Acute (2) Hypokalemia Priority: Secondary Status: Resolved (3) Hypertension Priority: Secondary Status: Chronic Qualifiers: Hypertension type: essential hypertension Qualified Code(s): I10 - Essential (primary) hypertension (4) Hypoglycemia Priority: Secondary Status: Resolved (5) Atrial fibrillation Priority: Secondary Status: Acute Qualifiers: Atrial fibrillation type: paroxysmal Qualified Code(s): I48.0 - Paroxysmal atrial fibrillation - Discharge Medications Prescriptions: Diltiazem CD (24hr) [Cardizem CD] 120 mg PO DAILY #30 cap.er.24h Lactobacillus [Culturelle] 1 each PO BID #30 cap.sprink Vancomycin Oral Soln [Vancocin] 125 mg PO QID 8 Days [facility] [place] Home Medications: Lisinopril mg PO DAILY 10/30/17 [History] Omeprazole Magnesium [Prilosec Otc] 20 mg PO DAILY 10/30/17 [History] Potassium Chloride [Klor-Con 10] 10 meq PO DAILY 10/30/17 [History] hydroCHLOROthiazide [Hydrochlorothiazide] 25 mg PO DAILY 10/30/17 [History] Apixaban [Eliquis] 2.5 mg PO BID #60 tablet 11/02/17 [Rx] Diltiazem CD (24hr) [Cardizem CD] 120 mg PO DAILY #30 cap.er.24h 11/05/17 [Rx] Lactobacillus [Culturelle] 1 each PO BID #30 cap.sprink 11/05/17 [Rx] Vancomycin Oral Soln [Vancocin] 125 mg PO QID 8 Days [facility] [place] 11/05/17 [Rx] Allergies/Adverse Reactions: 3 Allergy/AdvReac Type Severity Reaction Status Date / Time Procaine [From Novocain] Allergy Palpitation Verified 10/30/17 17:51 s Iff[place]-Nas-Tnl Reductase Allergy See Verified 10/30/17 17:51 Inhibitor Comments [Statins] Date of admission: 11/02/17 16:58 Primary care physician: Randy Amor Discharging clinician: Santo Lyn Anticipated date of discharge: 11/06/17 - Patient Status Disposition: Home, Self-Care Condition: Good Functional capacity at discharge: independent ambulation Overall status at discharge: patient is progressing back to baseline - Discharge Instructions Instructions: Atrial Fibrillation (DC), Clostridium Difficile Infection (DC), Chronic Hypertension (DC) Follow Up With: Randy Amor DO [Primary Care Provider] - (in 1 -2 weeks) Additional Instructions: FOllow up with Cardiology in 1-2 weeks for Afib management - Diet and Activity Activity: increase activity as tolerated Diet: low fat, low cholesterol, low salt diet Hospital course: Ms. Johnson is a 82 year old female patient who was hospitalized here with acute colitis. Her stool was positive for C. difficile colitis. Patient was placed on oral vancomycin with initial improvement in her symptoms. However her diarrhea has persisted and so she was kept in the hospital on intravenous hydration and replete her electrolytes and fluids. Her symptoms have now started to improve and her diarrhea has become less frequent. She did develop atrial fibrillation during her stay here. She has a [id number] score of 5 and would benefit from anticoagulation. She was placed on Eliquis for anticoagulation. She is tolerating this medication well. At this time, she is stable to be discharged home if her diarrhea continues to improve and become less frequent. She is also on lactobacillus to help with her symptoms. - Time Spent with Patient Total time spent providing and/or coordinating discharge services: Greater than 30 minutes (40 min) - Constitutional Vitals: Temp Pulse Resp BP Pulse Ox 98.4 F 84 16 136/78 96 11/05/17 11:43 11/05/17 11:43 11/05/17 11:43 11/05/17 11:43 11/05/17 11:43 General appearance: Present: cooperative, A&O X 3, pleasant, no acute distress, answers questions appropriately - Respiratory Respiratory exam: Present: CTAB. Absent: accessory muscle use, rales, rhonchi, wheezes - Cardiovascular Cardiovascular exam: Present: RRR, +S1, +S2. Absent: diastolic murmur, gallop, rubs, systolic murmur - GI/Abdominal GI/Abdominal exam: Present: normal bowel sounds, soft, no peritoneal signs. Absent: distended, tenderness - Extremities Exam Extremities exam: Present: warm, radial pulses palpable and symmetrical. Absent : calf tenderness, cyanotic, pedal edema - Neurological Exam Neurological exam: Present: CN II-XII intact, oriented X3, no focal deficits. Absent: facial droop, speech deficit
[2017-11-06 06:30] LABS: BUN/Creatinine Ratio 19 (6-26); Blood Urea Nitrogen 13 mg/dL (8-23); Calcium 8.7 mg/dL (8.6-10.3); Carbon Dioxide 28 mEq/L (23-29); Chloride 104 mEq/L (98-107); Glucose 86 mg/dL (70-105); Osmolality,Calculated 291 (280-300); Potassium 4.2 mEq/L (3.5-5.1); Sodium 141 mEq/L (136-145); eGFR For African Americans > 60 (> 60); eGFR For Non-African Americans > 60 (> 60)
[2017-11-06] MEDS: hydroCHLOROthiazide 25 MG TABLET PO SCH (08:13)
[2017-11-06] MEDS: Lactobacillus 1 EACH CAP.SPRINK PO SCH (08:13)
[2017-11-06] MEDS: Apixaban 5 MG TABLET PO SCH (08:13)
[2017-11-06] MEDS: amLODIPine 5 MG TABLET PO SCH (08:14)
[2017-11-06] MEDS: Diltiazem CD (24hr) 120 MG CAPSULE PO SCH (08:14)
[2017-11-06] MEDS: Vancomycin Oral Soln 250 MG/5 ML UDC PO SCH ×2 (08:15→14:36)
[2017-11-06 11:00] VITALS: BP 133/76
--- NOTE | 2017-11-06 13:32 | Physician Discharge Referral ---
Home Health/Hosp Referral Info Transfer to: Home Health - Respiratory Orders Smoking Cessation: Smoking cessation has been advised. For more information, call the [place] Tobacco Quit Line at 7-794-AJJY-NOW. - Services Needed Following services are medically necessary services: Nursing, Physical Therapy - Transfer Medications Prescriptions: Diltiazem CD (24hr) [Cardizem CD] 120 mg PO DAILY #30 cap.er.24h Lactobacillus [Culturelle] 1 each PO BID #30 cap.sprink Vancomycin Oral Soln [Vancocin] 125 mg PO QID 8 Days [facility] [place] Home Medications: Lisinopril mg PO DAILY 10/30/17 [History] Omeprazole Magnesium [Prilosec Otc] 20 mg PO DAILY 10/30/17 [History] Potassium Chloride [Klor-Con 10] 10 meq PO DAILY 10/30/17 [History] hydroCHLOROthiazide [Hydrochlorothiazide] 25 mg PO DAILY 10/30/17 [History] Apixaban [Eliquis] 2.5 mg PO BID #60 tablet 11/02/17 [Rx] Diltiazem CD (24hr) [Cardizem CD] 120 mg PO DAILY #30 cap.er.24h 11/05/17 [Rx] Lactobacillus [Culturelle] 1 each PO BID #30 cap.sprink 11/05/17 [Rx] Vancomycin Oral Soln [Vancocin] 125 mg PO QID 8 Days [facility] [place] 11/05/17 [Rx] Allergies/Adverse Reactions: 3 Allergy/AdvReac Type Severity Reaction Status Date / Time Procaine [From Novocain] Allergy Palpitation Verified 10/30/17 17:51 s Yvhdfeb-Etz-Oyg Reductase Allergy See Verified 10/30/17 17:51 Inhibitor Comments [Statins] Certification: Further, I certify that my clinical findings support that this patient is homebound (i.e. absences from home require considerable and taxing effort and are for medical reasons or caodaism services or infrequently or short duration when for other reasons) because: Homebound Reason: Patient requires assistance of a person or device to safely leave home Attestation: My signature below is to certify that this patient is under my care and that I, or nurse practitioner, or a physician's title assistant working with me, has a face-to -face encounter with this patient.
== END 2017-11-06 15:06 | disposition home health service (06) | DRG 373 ==
LOC: EMEROO 16:43 → 3ANU 16:43 → SUATTDRO 10-31 00:18 → 3ANU 10-31 00:47 → SUATTDRO 11-02 16:58
PROVIDERS: ADMIT Internal Medicine; ATTEND Hospitalist